=== PATIENT | female | born 1935 | race Caucasian/White ===

== ENCOUNTER → 2018-04-04 | Outpatient (CLI) | payer MEDICARE, OTHER ==
[~2018-04-04] MED LIST: GADOBUTROL 10 MMOL/10 ML VIAL ONE
== END | disposition home or self-care (01) ==
LOC: CFH 11:18
PROVIDERS: ATTEND Surgery
DX: N63.22 Unspecified lump in the left breast, upper inner quadrant (principal)
CPT/HCPCS: 82565; A9585; C8908

== ENCOUNTER → 2018-04-19 | Outpatient (CLI) | payer MEDICARE, OTHER | END | disposition home or self-care (01) | LOC: CFH 08:07 | PROVIDERS: ATTEND Surgery | DX: C50.912 Malignant neoplasm of unspecified site of left female breast (principal) | CPT/HCPCS: 19085; 76641; 77065; 88305; A9585 ==

== ENCOUNTER → 2018-10-11 | Outpatient (CLI) | payer MEDICARE, OTHER ==
[~2018-10-11] MED LIST changes: +CHOL5000 PO; +CYAN500T2 PO; +FOLI0.4T2 PO; -GADOBUTROL 10 MMOL/10 ML VIAL ONE; +MEMA10TA PO; +METO25TA35 PO; +RIVA20TA PO; +TRAZ-137 PO; +VIT1CAPS16 PO
== END | disposition home or self-care (01) ==
LOC: STAR 12:22
PROVIDERS: ATTEND Surgery
DX: Z01.812 Encounter for preprocedural laboratory examination (principal); C50.212 Malignant neoplasm of upper-inner quadrant of left female breast
CPT/HCPCS: 93005

== ENCOUNTER 2018-10-17 07:30 | Day surgery (SDC) | payer MEDICARE, OTHER ==
[~2018-10-17] VITALS: Ht 170.2 cm; Wt 73.3 kg
[~2018-10-17 07:30] MED LIST changes: +BUPIVACAINE/PF-EPI 0.5% 1:200K ONE; +ISOSULFAN BLUE 10 MG/ML, 5ML IV ONE
[2018-10-17] MEDS ORDERED: LIDOCAINE 1%-EPI 1:100K, 20ML ONE (09:00)
[2018-10-17] MEDS ORDERED: LACTATED RINGERS 1,000 ML IV SCH (09:39)
[2018-10-17 09:44] VITALS: BP 155/84
[2018-10-17] MEDS ORDERED: GABAPENTIN 300 MG CAPSULE PO ONE (10:00)
[2018-10-17] MEDS ORDERED: ONDANSETRON ODT 8 MG PO ONE (10:00)
[2018-10-17] MEDS ORDERED: ACETAMINOPHEN 500 MG TABLET PO ONE (10:00)
[2018-10-17] MEDS ORDERED: FENTANYL PF 250 MCG/5ML ONE (10:34)
[2018-10-17] MEDS ORDERED: DEXAMETHASONE 4 MG/ML, 1ML ONE (10:47)
[2018-10-17] MEDS ORDERED: PROPOFOL 10 MG/ML, 20ML ONE (10:47)
[2018-10-17] MEDS ORDERED: CEFAZOLIN 1,000 MG ONE (10:47)
[2018-10-17] MEDS ORDERED: ROCURONIUM 10 MG/ML,10ML ONE (10:47)
[2018-10-17] MEDS ORDERED: EPHEDRINE 50 MG/ML, 1ML ONE (10:47)
[2018-10-17] MEDS ORDERED: SUCCINYLCHOLINE 20 MG/ML, 10ML ONE (10:47)
[2018-10-17] MEDS ORDERED: FENTANYL PF 100 MCG/2ML IV PRN (11:00)
[2018-10-17] MEDS ORDERED: PROMETHAZINE 25 MG/ML, 1ML IV PRN (11:00)
[2018-10-17] MEDS ORDERED: ONDANSETRON 2MG/ML, 2ML IV PRN (11:00)
[2018-10-17] MEDS ORDERED: HYDROmorphone 2 MG/ML, 1ML IVPush PRN (11:00)
[2018-10-17] MEDS ORDERED: OXYcodone 5 MG/5 ML ORAL.SOL UDC PO PRN (11:00)
[2018-10-17] MEDS ORDERED: ONDANSETRON ODT 8 MG PO PRN (11:00)
== END 2018-10-17 14:50 | disposition home or self-care (01) ==
LOC: CFH 07:30 → EDSTATUS 12:00 → OUT 14:50
PROVIDERS: ATTEND Surgery
DX: C50.212 Malignant neoplasm of upper-inner quadrant of left female breast (principal); R59.1 Generalized enlarged lymph nodes; I48.91 Unspecified atrial fibrillation; I10 Essential (primary) hypertension; F03.90 Unspecified dementia, unspecified severity, without behavioral disturbance, psychotic disturbance, mood disturbance, and anxiety
CPT/HCPCS: 19125; 19281; 38525; 38792; 76098; 88307; 88329; 88333; A9541; C1729; C9898; J0330; J0690; J1100; J2704; J3010; J3490; J7120; Q0162

== ENCOUNTER → 2018-11-13 | Outpatient (CLI) | payer MEDICARE, OTHER ==
[~2018-11-13] MED LIST changes: -BUPIVACAINE/PF-EPI 0.5% 1:200K ONE; -ISOSULFAN BLUE 10 MG/ML, 5ML IV ONE
== END | disposition home or self-care (01) ==
LOC: CFH 13:59
PROVIDERS: ATTEND Radiology Radiation Oncology
DX: D24.1 Benign neoplasm of right breast (principal); C50.212 Malignant neoplasm of upper-inner quadrant of left female breast
CPT/HCPCS: 76641; 77065; G0279

== ENCOUNTER 2018-11-15 08:15 | Outpatient (CLI) | payer MEDICARE, OTHER | END 2018-11-15 23:59 | disposition home or self-care (01) | LOC: ROC 08:15 | PROVIDERS: ATTEND Radiology Radiation Oncology | DX: Z02.9 Encounter for administrative examinations, unspecified (principal) ==

== ENCOUNTER 2019-03-03 10:29 | Outpatient (CLI) | payer MEDICARE, OTHER | END 2019-03-03 23:59 | disposition home or self-care (01) | LOC: CFH 10:29 | PROVIDERS: ATTEND Internal Medicine Hematology & Oncology | DX: C50.812 Malignant neoplasm of overlapping sites of left female breast (principal); M85.89 Other specified disorders of bone density and structure, multiple sites | CPT/HCPCS: 77080 ==